=== PATIENT | female | born 1950 | race Caucasian/White ===

== ENCOUNTER 2019-03-14 10:49 | Inpatient (IN) | payer OTHER, BC ==
[2019-03-14] MEDS ORDERED: DIPHENHYDRAMINE 25 MG TAB/CAP PO PRN (11:39)
[2019-03-14] MEDS ORDERED: ACETAMINOPHEN 325 MG TABLET PO PRN (11:39)
[2019-03-14] MEDS ORDERED: LOPERAMIDE HCL 2 MG CAPSULE PO PRN (11:39)
[2019-03-14] MEDS ORDERED: ONDANSETRON 4 MG/2 ML VIAL IV PRN (11:39)
[2019-03-14] MEDS ORDERED: ALBUTEROL 2.5 MG/3 ML NEB SOL NEB PRN (11:44)
--- NOTE | 2019-03-14 12:15 | RAD REPORT ---
EXAM DESCRIPTION: RAD - Chest Pa And Lat (2 Views) - 03/14/2019 12:09 pm CLINICAL HISTORY: weight loss Chest pain. COMPARISON: <Comparisons> FINDINGS: Severe emphysematous changes are present throughout the lungs. Poorly defined patchy opaci ty in the medial posterior right lung base likely represents pneumonia. Small right pleural effusion likely present. The heart is normal in size. No displaced fractures. The bones are osteopenic.
[2019-03-14 13:25] LABS: Protime INR 0.96
[2019-03-14 13:38] LABS: Absolute Lymphocytes (CBC) 0.3 K/uL (0.7-4.9); Basophils % 0.1 % (0-1.3); Eosinophils % 0.1 % (0-4.4); Hematocrit 41.2 % (36.0-45.0); Lymphocytes % 1.8 % (15.3-44.8); MPV 7.4 fL (7.6-11.3); Monocytes % 4.5 % (3.3-12.3); RBC Red Blood Cell Count 4.58 M/uL (3.86-4.86)
[2019-03-14] MEDS: LEVALBUTEROL 1.25 MG/3 ML NEB NEB SCH ×2 (13:49→20:00)
[2019-03-14 14:25] LABS: Blood Morphology Comment NOT SEEN (NOT SEEN); Urine White Blood Cell Casts OK
[2019-03-14 14:26] LABS: ALT/SGPT 25 U/L (12-78); AST/SGOT 19 U/L (15-37); Albumin 2.8 g/dL (3.4-5.0); Alkaline Phosphatase 87 U/L (45-117); BUN Blood Urea Nitrogen 21 mg/dL (7-18); Bicarbonate 39 mmol/L (21-32); Bilirubin Direct 0.1 mg/dL (0-0.2); Bilirubin Total 0.4 mg/dL (0.2-1.0); Glucose Level 107 mg/dL (74-106); Magnesium 1.9 mg/dL (1.8-2.4); Phosphorus 2.5 mg/dL (2.5-4.9); Potassium 4.3 mmol/L (3.5-5.1); Protein, Total 7.3 g/dL (6.4-8.2); Sodium Level 125 mmol/L (136-145)
[2019-03-14 14:30] LABS: Platelet Estimate INCR
[2019-03-14] MEDS ORDERED: AA 4.25%/D10W/ELECTROLYTES 2,000 ML, Lipids 20% 250 ML with MULTIVITAMINS INJ 10 ML IV SCH ×3 (17:00)
--- NOTE | 2019-03-14 17:10 | RAD REPORT ---
EXAM DESCRIPTION: CT - Chest Abdomen Pelvis W Cont - 03/14/2019 4:25 pm CLINICAL HISTORY: Chest and abdomen pain. weight loss occult cancer COMPARISON: No comparisons TECHNIQUE: Approximately 100 mL nonionic IV contrast was administered to the patient. All CT scans are performed using dose optimization technique as appropriate and may include automated exposure control or mA/KV adjustment according to patient size. FINDINGS: Poorly defined opacity is present in the right lung base compatible with pneumonia. The kierra ng bases are emphysematous.Small right pleural effusion is noted.No pulmonary masses seen.No intratho racic adenopathy. The liver demonstrates no focal mass or biliary dilatation. The spleen, adrenal glands, pancreas and kidneys are within normal limits. There is a large amount of stool in the colon which appears distended. Full colonic assessment is allen ited. No pathologic lymphadenopathy in the abdomen or pelvis. No aggressive bone lesion or fracture seen. IMPRESSION: Right lower lobe pneumonia suspected. Marked fecal impaction/retention is seen.
[2019-03-14] MEDS ORDERED: POLYETHYL GLY 3350 17 GM/DOSE PO PRN (20:53)
[2019-03-14] MEDS: Levofloxacin500mg IV 500 MG/100 ML BAG IV SCH (21:57)
[2019-03-14 22:10] LABS: Urine Appearance CLEAR; Urine Bilirubin NEGATIVE (NEG); Urine Blood NEGATIVE (NEG); Urine Color YELLOW; Urine Glucose NEGATIVE (NEG); Urine Microscopic Reflex ORDER UMIC; Urine Protein NEGATIVE (NEG); Urine Specific Gravity 1.025 (1.005-1.030); Urine Urobilinogen 0.2 mg/dL (0.2-1.0)
[2019-03-14 22:17] LABS: Urine Bacteria <20 /HPF (<20); Urine Culture Reflex Order REFLEXED; Urine RBC <5 /HPF (NONE SEEN)
[2019-03-15] MEDS: LEVALBUTEROL 1.25 MG/3 ML NEB NEB SCH ×4 (02:00→20:00)
[2019-03-15] MEDS: LEVOTHYROXINE SOD 0.075 MG TAB PO SCH (06:15)
[2019-03-15 06:35] LABS: Absolute Lymphocytes (CBC) 0.2 K/uL (0.7-4.9); Basophils % 0.1 % (0-1.3); Hematocrit 33.3 % (36.0-45.0); Lymphocytes % 1.4 % (15.3-44.8); MPV 7.8 fL (7.6-11.3); Monocytes % 2.7 % (3.3-12.3); RBC Red Blood Cell Count 3.72 M/uL (3.86-4.86)
[2019-03-15 07:13] LABS: BUN Blood Urea Nitrogen 17 mg/dL (7-18); Glucose Level 165 mg/dL (74-106); Magnesium 1.9 mg/dL (1.8-2.4); Potassium 4.3 mmol/L (3.5-5.1); Sodium Level 126 mmol/L (136-145)
[2019-03-15 07:17] LABS: Bicarbonate 41 mmol/L (21-32)
--- NOTE | 2019-03-15 07:36 | EKG ---
Test Date: 2019-03-14 Test Time: 12:12:25 [place] Manager: LORNE MEASUREMENT RESULTS: Intervals: Rate: 88 WA: 118 QRSD: 126 QT: 356 QTc: 430 [place]: P: 88 WA: 118 QRS: 61 T: 227 INTERPRETIVE STATEMENTS: Normal sinus rhythm Left ventricular hypertrophy with QRS widening and repolarization abnormality Cannot rule out Septal infarct, age undetermined Abnormal ECG Compared to ECG 09/22/2009 16:40:39 Early repolarization now present Myocardial infarct finding now present Electronically Signed On 03-15-19 07:34:26 CDT by Andrews Barclay
[2019-03-15] MEDS: BISOPROLOL 5 MG TABLET PO SCH (08:14)
[2019-03-15] MEDS ORDERED: BISOPROLOL FUMARATE PO SCH (09:00)
[2019-03-15] MEDS ORDERED: HCTZ PO SCH (09:00)
[2019-03-15] MEDS ORDERED: BISOPROLOL/HCTZ 5/6.25MG TAB PO SCH (09:00)
[2019-03-15] MEDS: THYROID PO SCH (11:06)
--- NOTE | 2019-03-15 14:46 | P.PN ---
Subjective Date of Service: 03/15/19 Chief Complaint: LOT BETTER Subjective: Improving GUZMAN IS FEELING LOT STRONGER. SHE HAS NOT HAD BM SINCE 8TH. SHE HAS NO ABDOMEN PAIN,NO FEVER. Review of Systems 10-point ROS is otherwise unremarkable General: Weakness, Malaise Physical Examination - Vital Signs Temperature: 97.5 F Blood Pressure: 158/77 Pulse: 71 Respirations: 16 Pulse Ox (%): 100 - Physical Exam General: Cachectic, Mild distress HEENT: Atraumatic, PERRLA, EOMI Neck: Supple, JVD not distended Respiratory: Clear to auscultation bilaterally, Normal air movement Cardiovascular: Regular rate/rhythm, Normal S1 S2 Gastrointestinal: Normal bowel sounds, No tenderness Musculoskeletal: No tenderness Integumentary: No rashes Neurological: Normal speech, Normal tone, Normal affect Lymphatics: No axilla or inguinal lymphadenopathy - Studies Laboratory Data (last 24 hrs) 03/15/19 05:40: Sodium 126 L, Potassium 4.3, BUN 17, Creatinine 0.34 L, Glucose 165 H, Magnesium 1.9 03/15/19 05:40: WBC 12.3 H D, Hgb 10.9 L D, Hct 33.3 L D, Plt Count 381 Microbiology Data (last 24 hrs): 03/14/19 13:22 Blood - Blood Anaerobic Blood Culture - Final Medications List Reviewed: Yes Assessment And Plan - Current Problems (Diagnosis) (1) Adult failure to thrive Current Visit: Yes Status: Chronic Plan: IMPROVED IN A DAY OF PPN. STRONGER. (2) Bacterial pneumonia Current Visit: Yes Status: Acute Plan: NO SYMPTOMS BUT SHE IS AT HIGH RISK FROM COPD. LEVAQUIN IV. (3) COPD (chronic obstructive pulmonary disease) Current Visit: Yes Status: Chronic Plan: FORMER SMOKER. SHE WILL DO NEBS. (4) Cachexia Current Visit: Yes Status: Chronic Plan: SHE HAS BEEN ALWAYS CACHECTIC. SHE HAS POOR ABSORPTION FROM HISTORY OF MAJOR COLON RESECTION. (5) Hyponatremia Current Visit: Yes Status: Acute Plan: THIS IS NEW. SHE HAS NOT BEEN EATING FOR DAYS. IV PPN I CALLED NATASHA TO ADJUST PPN TO IMPROVE NA. CHECK ACTH STIM TEST. (6) Hypothyroid Current Visit: Yes Status: Chronic Plan: FLUCTUATES FROM LOW TO HIGH TSH ON THE SAME DOSE, RELATED TO ABSORPTION. 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
[2019-03-15] MEDS ORDERED: LIPIDS 20% IV SCH ×4 (17:00)
[2019-03-15] MEDS ORDERED: [UNRECOGNIZED DRUG - OTHER] IV SCH ×4 (17:00)
[2019-03-15] MEDS ORDERED: MULTIVITAMINS IV SCH ×4 (17:00)
[2019-03-15] MEDS: TRAZODONE 50 MG TABLET PO PRN (20:35)
[2019-03-15] MEDS: Levofloxacin500mg IV 500 MG/100 ML BAG IV SCH (20:36)
[2019-03-15] MEDS: ENSURE ENLIVE 237 ML CAN PO SCH (20:36)
[2019-03-16] MEDS: LEVALBUTEROL 1.25 MG/3 ML NEB NEB SCH ×4 (02:00→20:00)
[2019-03-16 06:03] LABS: BUN Blood Urea Nitrogen 16 mg/dL (7-18); Glucose Level 98 mg/dL (74-106); Sodium Level 128 mmol/L (136-145)
[2019-03-16 06:05] LABS: Bicarbonate 41 mmol/L (21-32)
[2019-03-16] MEDS: THYROID PO SCH (06:17)
[2019-03-16] MEDS: LEVOTHYROXINE SOD 0.075 MG TAB PO SCH (06:18)
[2019-03-16] MEDS: ENSURE ENLIVE 237 ML CAN PO SCH ×2 (09:00→21:05)
[2019-03-16] MEDS: BISOPROLOL 5 MG TABLET PO SCH (10:07)
--- NOTE | 2019-03-16 17:18 | P.PN ---
Subjective Date of Service: 03/16/19 Chief Complaint: LOT BETTER GUZMAN IS FEELING LOT STRONGER. SHE HAS NOT HAD BM SINCE 8TH. SHE HAS NO ABDOMEN PAIN,NO FEVER. SHE IS ABLE TO WALK. SHE HAS HAD NO BMYET. SHE IS A LOT STRONGER AND STARTING TO EAT NOW. Review of Systems 10-point ROS is otherwise unremarkable General: Weakness, Malaise Respiratory: Shortness of Breath Physical Examination - Vital Signs Temperature: 97.7 F Blood Pressure: 141/65 Pulse: 79 Respirations: 18 Pulse Ox (%): 91 - Physical Exam General: In no apparent distress, Cachectic HEENT: Atraumatic, PERRLA, EOMI Neck: Supple, JVD not distended Respiratory: Clear to auscultation bilaterally, Normal air movement Cardiovascular: Regular rate/rhythm, Normal S1 S2 Gastrointestinal: Normal bowel sounds, No tenderness Musculoskeletal: No tenderness Integumentary: No rashes Neurological: Normal speech, Normal tone, Normal affect Lymphatics: No axilla or inguinal lymphadenopathy - Studies Laboratory Data (last 24 hrs) 03/16/19 05:25: Sodium 128 L, Potassium 5.0, BUN 16, Creatinine 0.31 L, Glucose 98 Microbiology Data (last 24 hrs): 03/14/19 13:22 Blood - Blood Anaerobic Blood Culture - Final Medications List Reviewed: Yes Assessment And Plan - Current Problems (Diagnosis) (1) Adult failure to thrive Current Visit: Yes Status: Chronic Plan: IMPROVED IN A DAY OF PPN. STRONGER. STOP PPN. BACK TO REGULAR DIET. (2) Bacterial pneumonia Current Visit: Yes Status: Acute Plan: NO SYMPTOMS BUT SHE IS AT HIGH RISK FROM COPD. LEVAQUIN IV. CLINICALLY IMPROVED (3) COPD (chronic obstructive pulmonary disease) Current Visit: Yes Status: Chronic Plan: FORMER SMOKER. SHE WILL DO NEBS. (4) Cachexia Current Visit: Yes Status: Chronic Plan: SHE HAS BEEN ALWAYS CACHECTIC. SHE HAS POOR ABSORPTION FROM HISTORY OF MAJOR COLON RESECTION. (5) Hyponatremia Current Visit: Yes Status: Acute Plan: THIS IS NEW. SHE HAS NOT BEEN EATING FOR DAYS. IV PPN I CALLED NATASHA TO ADJUST PPN TO IMPROVE NA. CHECK ACTH STIM TEST. (6) Hypothyroid Current Visit: Yes Status: Chronic Plan: FLUCTUATES FROM LOW TO HIGH TSH ON THE SAME DOSE, RELATED TO ABSORPTION. 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
[2019-03-16] MEDS: D5 0.9 NS 1,000 ML IV SCH (21:05)
[2019-03-16] MEDS: Levofloxacin500mg IV 500 MG/100 ML BAG IV SCH (21:05)
[2019-03-16] MEDS: TRAZODONE 50 MG TABLET PO PRN (21:05)
[2019-03-17] MEDS: LEVALBUTEROL 1.25 MG/3 ML NEB NEB SCH ×4 (02:00→20:05)
[2019-03-17] MEDS: LEVOTHYROXINE SOD 0.075 MG TAB PO SCH (06:23)
[2019-03-17] MEDS: THYROID PO SCH (06:27)
[2019-03-17] MEDS: BISOPROLOL 5 MG TABLET PO SCH (08:39)
[2019-03-17] MEDS: ENSURE ENLIVE 237 ML CAN PO SCH ×2 (08:40→20:47)
[2019-03-17] MEDS: D5 0.9 NS 1,000 ML IV SCH ×2 (13:00→15:34)
--- NOTE | 2019-03-17 14:54 | P.PN ---
Subjective Date of Service: 03/17/19 Chief Complaint: FEELS BETTER. Subjective: Improving GUZMAN IS FEELING LOT STRONGER. SHE HAS NOT HAD BM SINCE 8TH. SHE HAS NO ABDOMEN PAIN,NO FEVER. SHE IS ABLE TO WALK. SHE HAS HAD NO BMYET. SHE IS A LOT STRONGER AND STARTING TO EAT NOW. MS. WYATT IS A LOT BETTER, WALKS , EATS WELL. SHE ALSO HAD A GOOD BM. Review of Systems 10-point ROS is otherwise unremarkable General: Weakness, Malaise Physical Examination - Vital Signs Temperature: 97.7 F Blood Pressure: 95/44 Pulse: 65 Respirations: 16 Pulse Ox (%): 96 - Physical Exam General: Alert, Cachectic, Mild distress HEENT: Atraumatic, PERRLA, EOMI Neck: Supple, JVD not distended Respiratory: Clear to auscultation bilaterally, Normal air movement Cardiovascular: Regular rate/rhythm, Normal S1 S2 Gastrointestinal: Normal bowel sounds, No tenderness Musculoskeletal: No tenderness Integumentary: No rashes Neurological: Normal speech, Normal tone, Normal affect Lymphatics: No axilla or inguinal lymphadenopathy - Studies Microbiology Data (last 24 hrs): 03/14/19 21:55 Clean Catch Urine [place] Count - Final BETWEEN 10,000 & 100,000 CFU/ML 03/14/19 21:55 Clean Catch Urine - Final MIXED DOROTEO. Medications List Reviewed: Yes Assessment And Plan - Current Problems (Diagnosis) (1) Adult failure to thrive Current Visit: Yes Status: Chronic Plan: IMPROVED IN A DAY OF PPN. STRONGER. STOP PPN. BACK TO REGULAR DIET. (2) Bacterial pneumonia Current Visit: Yes Status: Acute Plan: NO SYMPTOMS BUT SHE IS AT HIGH RISK FROM COPD. LEVAQUIN IV. CLINICALLY IMPROVED (3) COPD (chronic obstructive pulmonary disease) Current Visit: Yes Status: Chronic Plan: FORMER SMOKER. SHE WILL DO NEBS. (4) Cachexia Current Visit: Yes Status: Chronic Plan: SHE HAS BEEN ALWAYS CACHECTIC. SHE HAS POOR ABSORPTION FROM HISTORY OF MAJOR COLON RESECTION. (5) Hyponatremia Current Visit: Yes Status: Acute Plan: THIS IS NEW. SHE HAS NOT BEEN EATING FOR DAYS. IV PPN I CALLED NATASHA TO ADJUST PPN TO IMPROVE NA. CHECK ACTH STIM TEST LAB IN AM. IV NS CONTINUE. ACTH STIM TEST IN AM. . (6) Hypothyroid Current Visit: Yes Status: Chronic Plan: FLUCTUATES FROM LOW TO HIGH TSH ON THE SAME DOSE, RELATED TO ABSORPTION. 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
[2019-03-17] MEDS: Levofloxacin500mg IV 500 MG/100 ML BAG IV SCH (20:46)
[2019-03-18] MEDS: LEVALBUTEROL 1.25 MG/3 ML NEB NEB SCH ×3 (02:20→15:15)
[2019-03-18 05:39] LABS: Absolute Lymphocytes (CBC) 0.5 K/uL (0.7-4.9); Basophils % 0.5 % (0-1.3); Eosinophils % 1.5 % (0-4.4); Hematocrit 34.5 % (36.0-45.0); Lymphocytes % 7.2 % (15.3-44.8); RBC Red Blood Cell Count 3.81 M/uL (3.86-4.86)
[2019-03-18 05:55] LABS: BUN Blood Urea Nitrogen 18 mg/dL (7-18); Bicarbonate 40 mmol/L (21-32); Glucose Level 91 mg/dL (74-106); Sodium Level 132 mmol/L (136-145)
[2019-03-18] MEDS: THYROID PO SCH (06:30)
[2019-03-18] MEDS ORDERED: COSYNTROPIN 0.25 MG VIAL IV ONE (07:00)
[2019-03-18] MEDS ORDERED: SODIUM CHLORIDE 0.9% 10ML INJ IV ONE (07:00)
[2019-03-18] MEDS: ENSURE ENLIVE 237 ML CAN PO SCH (09:00)
[2019-03-18] MEDS: LEVOTHYROXINE SOD 0.075 MG TAB PO SCH (09:17)
[2019-03-18] MEDS: D5 0.9 NS 1,000 ML IV SCH (09:17)
[2019-03-18] MEDS: BISOPROLOL 5 MG TABLET PO SCH (09:18)
--- NOTE | 2019-03-19 12:53 | P.DS ---
Admission Date: 03/14/19 Discharge Date: 03/19/19 Disposition: ROUTINE DISCHARGE Discharge Condition: FAIR Reason for Admission: FEELS BETTER. 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 WYATT CAME IN VERY WEAK, DEHYDRATED NOT ABLE TO WALK. I FOUND HER TO HAVE PNEUMONIA THAT IMPROVED ON LEVAQUIN. SHE WAS GIVEN TPN, SHE STARTED TO WALK. I DID ACTH STIM TEST. SHE IS STABLE FOR DC AND WAS SENT HOME ON ABX. Vital Signs/Physical Exam: Temp Pulse Resp BP Pulse Ox 98.0 F 64 16 130/60 100 03/18/19 12:00 03/18/19 12:00 03/18/19 12:00 03/18/19 12:00 03/18/19 12:00 Laboratory Data at Discharge: WBC 6.7 K/uL (4.3-10.9) D 03/18/19 05:17 Hgb 11.0 g/dL (12.0-15.0) L 03/18/19 05:17 Hct 34.5 % (36.0-45.0) L 03/18/19 05:17 Plt Count 348 K/uL (152-406) 03/18/19 05:17 PT 11.3 SECONDS (9.5-12.5) 03/14/19 12:43 INR 0.96 03/14/19 12:43 APTT 31.2 SECONDS (24.3-36.9) 03/14/19 12:43 Sodium 132 mmol/L (136-145) L 03/18/19 05:17 Potassium 5.0 mmol/L (3.5-5.1) 03/18/19 05:17 BUN 18 mg/dL (7-18) 03/18/19 05:17 Creatinine 0.37 mg/dL (0.55-1.3) L 03/18/19 05:17 Glucose 91 mg/dL (74-106) 03/18/19 05:17 Phosphorus 2.5 mg/dL (2.5-4.9) 03/14/19 13:22 Magnesium 1.9 mg/dL (1.8-2.4) 03/15/19 05:40 Total Bilirubin 0.4 mg/dL (0.2-1.0) 03/14/19 13:22 AST 19 U/L (15-37) 03/14/19 13:22 ALT 25 U/L (12-78) 03/14/19 13:22 Alkaline Phosphatase 87 U/L (45-117) 03/14/19 13:22 Home Medications: Bisoprolol Fumarate/Hctz [Bisoprolol-Hctz 10-6.25 mg Tab] 1 each PO DAILY Levothyroxine [Synthroid] 75 mcg PO [id number] 09/28/15 Losartan Potassium 100 mg PO DAILY 09/28/15 Amlodipine Besylate 10 mg PO DAILY 12/05/16 Thyroid,Pork [[place] Thyroid] 1.5 gr PO DAILY 12/18/17 Trazodone [Desyrel] 100 mg PO BEDTIME PRN 03/14/19 levoFLOXacin [Levaquin] 500 mg PO DAILY #7 tab 03/18/19 New Medications: levoFLOXacin [Levaquin] 500 mg PO DAILY #7 tab Followup: Galen Sheth MD [Primary Care Provider] - 1 Week (call to schedule an appointment)
[2019-03-21 07:41] LABS: Immunoglobulin A 545 mg/dL (20-320); Tissue Transglutaminase IgA Ab 1 U/mL (<4)
== END 2019-03-18 15:39 | disposition home or self-care (01) | DRG 640 ==
LOC: 2ND 11:11 → OBSVTOIN 11:11 → 4TH 17:41
PROVIDERS: ADMIT Internal Medicine; ATTEND Internal Medicine
DX: R62.7 Adult failure to thrive (principal); J15.9 Unspecified bacterial pneumonia; R64 Cachexia; Z68.1 Body mass index [BMI] 19.9 or less, adult; E87.1 Hypo-osmolality and hyponatremia; J44.0 Chronic obstructive pulmonary disease with (acute) lower respiratory infection; E86.0 Dehydration; R53.81 Other malaise; I10 Essential (primary) hypertension; E06.3 Autoimmune thyroiditis; Z87.891 Personal history of nicotine dependence; Z90.49 Acquired absence of other specified parts of digestive tract
CPT/HCPCS: 36415; 71046; 71260; 74177; 80048; 80076; 81003; 81015; 82024; 82306; 82533; 82607; 82784; 82962; 83516; 83735; 84100; 84439; 84443; 85025; 85610; 85730; 87040; 87086; 87088; 93005; 94640; 97116; 97163; J0834; Q9967

== ENCOUNTER 2019-09-26 10:44 | Day surgery (SDC) | payer OTHER, BC ==
[2019-09-26] MEDS ORDERED: Zoledronic Acid/Mannitol/Water 5 MG/100 ML INFUS.BOT IV ONE (11:00)
[2019-09-26 12:36] VITALS: BP 145/75; TEMP 97; O2SAT 100; BMI 17.4
== END 2019-09-26 11:40 | disposition home or self-care (01) ==
LOC: DS 10:44
PROVIDERS: ATTEND Internal Medicine
DX: M81.0 Age-related osteoporosis without current pathological fracture (principal); R13.10 Dysphagia, unspecified
CPT/HCPCS: 96365; J3489